=== PATIENT | male | born 1945 | race American Indian/Alaskan Native ===

== ENCOUNTER 2019-02-17 11:06 | Observation (INO) | payer MEDICARE, OTHER ==
--- NOTE | 2019-02-17 11:14 | Event Note ---
ED Screening Note Date of service: 02/17/19 Time: 11:12 ED Screening Note: This is a 73 y.o. M. that presents to the ER from nephrology office Dr. Fernandes with low H/H. This initial assessment/diagnostic orders/clinical plan/treatment(s) is/are subject to change based on patients health status, clinical progression and re- assessment by fellow clinical providers in the ED. Further treatment and workup at subsequent clinical providers discretion. Patient/guardian urged not to elope from the ED as their condition may be serious if not clinically assessed and managed. Initial orders include: Labs
[2019-02-17 12:01] LABS: Basophils % (Auto) 0.5 % (0.0-1.8); Eosinophils # (Auto) 0.1 K/mm3 (0.0-0.4); Hemoglobin 6.4 gm/dl (11.8-15.2); Lymphocytes # (Auto) 1.6 K/mm3 (1.2-5.4); Lymphocytes % (Auto) 21.5 % (13.4-35.0); Mean Corpuscular HGB Conc 33 % (32-34); Mean Corpuscular Volume 84 fl (84-94); Monocytes # (Auto) 0.7 K/mm3 (0.0-0.8); Monocytes % (Auto) 9.9 % (0.0-7.3); Platelet Count 244 K/mm3 (140-440); Red Blood Count 2.28 M/mm3 (3.65-5.03); Red Cell Distribution Width 19.2 % (13.2-15.2)
[2019-02-17 12:12] LABS: Hematocrit 19.2 % (35.5-45.6)
[2019-02-17 12:23] LABS: Albumin 3.1 g/dL (3.9-5); Calcium 8.5 mg/dL (8.4-10.2)
[2019-02-17] MEDS ORDERED: SODIUM CHLORIDE 0.9% 500 ML 500 ML IV ONE ×2 (16:33→21:24)
--- NOTE | 2019-02-17 17:08 | Emergency Department Report ---
ED General Adult HPI - General Chief complaint: Recheck/Abnormal Lab/Rx Stated complaint: LABS DRAWN Time Seen by Provider: 02/17/19 11:12 Source: patient, EMS Mode of arrival: Ambulatory Limitations: No Limitations - History of Present Illness Initial comments: 73-year-old male with a past medical history of end-stage renal disease on dialysis, hypertension, and hepatitis B presents to the hospital from dialysis clinic with abnormal labs. Reports hemoglobin of 5.5 and hematocrit of 18.8 on the blood draw 02/15. Patient states he completed most of his dialysis prior to being transfered to the hospital. Patient reports that last week he has had some increase shortness of breath and generalized fatigue. No pain reported. He reports that he had 1-2 episodes of black stool last week which has since resolved. No complaints of hematochezia, hematemesis, coffee ground emesis. Patient has never required a blood transfusion in the past. 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 - Related Data Allergies Allergy/AdvReac Type Severity Reaction Status Date / Time No Known Allergies Allergy Unverified 02/17/19 11:14 ED Review of Systems ROS: Stated complaint: LABS DRAWN Other details as noted in HPI Comment: All other systems reviewed and negative ED Past Medical Hx - Past Medical History Previous Medical History?: Yes Hx Renal Disease: Yes Additional medical history: Hepatitis B - Social History Smoking Status: Former Smoker Substance Use Type: None ED Physical Exam - General Limitations: No Limitations - Other Other exam information: General: No acute distress Head: Atraumatic Eyes: normal appearance ENT: Moist mucous membranes Neck: Normal appearance, no midline tenderness Chest: Clear to auscultation bilaterally CV: Regular rate and rhythm Abdomen: Soft, normal bowel sounds, nontender, nondistended, no rebound or guarding To: Guaiac positive brown stool without melena or gross blood Back: Normal inspection Extremity: Dialysis access in the left arm with generalized left arm chronic lymphedema/ swelling Neuro: Alert O x 3, no facial asymmetry, speech clear, no gross motor sensory deficit Psych: Appropriate behavior Skin: No rash ED Course Vital Signs 02/17/19 11:13 Temperature 97.7 F Pulse Rate 80 Respiratory 20 Rate Blood Pressure 149/50 O2 Sat by Pulse 100 Oximetry - Consultations Consultation #1: 02/17/19 17:12 case was d/w Dr Fernandes (bilingual spanish inbound sales) who requests admission for blood transfusion and Gi consultation ED Medical Decision Making - Lab Data Result diagrams: 02/17/19 11:27 02/17/19 11:27 Lab Results 02/17/19 02/17/19 02/17/19 Range/Units 11:27 11:27 11:27 WBC 7.5 (4.5-11.0) K/mm3 RBC 2.28 L (3.65-5.03) M/mm3 Hgb 6.4 L (11.8-15.2) gm/dl Hct 19.2 L* (35.5-45.6) % MCV 84 (84-94) fl MCH 28 (28-32) pg MCHC 33 (32-34) % RDW 19.2 H (13.2-15.2) % Plt Count 244 (140-440) K/mm3 Lymph % (Auto) 21.5 (13.4-35.0) % [place] % (Auto) 9.9 H (0.0-7.3) % Eos % (Auto) 1.0 (0.0-4.3) % Baso % (Auto) 0.5 (0.0-1.8) % Lymph # 1.6 (1.2-5.4) K/mm3 [place] # 0.7 (0.0-0.8) K/mm3 Eos # 0.1 (0.0-0.4) K/mm3 Baso # 0.0 (0.0-0.1) K/mm3 Seg Neutrophils % 67.1 (40.0-70.0) % Seg Neutrophils # 5.1 (1.8-7.7) K/mm3 Sodium 137 (137-145) mmol/L Potassium 4.5 (3.6-5.0) mmol/L Chloride 99.9 (98-107) mmol/L Carbon Dioxide 23 (22-30) mmol/L Anion Gap 19 mmol/L BUN 23 H (9-20) mg/dL Creatinine 3.9 H (0.8-1.5) mg/dL Estimated GFR 15 ml/min BUN/Creatinine Ratio 6 % Glucose 195 H (75-100) mg/dL Calcium 8.5 (8.4-10.2) mg/dL Total Bilirubin 0.40 (0.1-1.2) mg/dL AST 21 (5-40) units/L ALT 18 (7-56) units/L Alkaline Phosphatase 93 (35-129) units/L Total Protein 6.5 (6.3-8.2) g/dL Albumin 3.1 L (3.9-5) g/dL Albumin/Globulin Ratio 0.9 % Blood Type O POSITIVE Antibody Screen Negative Crossmatch See Detail - EKG Data -: EKG Interpreted by Me (regular rythm with intermittent escape beats, no pe waves, incomplete LBBB) - Medical Decision Making Patient presents with symptomatic anemia. Case discussed with his bilingual spanish inbound sales who requested admission for 1 unit of blood and GI workup. Hospitalist informed for admission - Differential Diagnosis GI bleed, iron deficiency, anemia and chronic disease Critical Care Time: No Critical care attestation.: If time is entered above; I have spent that time in minutes in the direct care of this critically ill patient, excluding procedure time. ED Disposition Clinical Impression: Symptomatic anemia, ESRD on dialysis Disposition: OP ADMIT IP TO THIS HOSP Is pt being admited?: Yes Condition: Stable Time of Disposition: 17:08 (Dr Salinas hospitalist)
[2019-02-17] MEDS ORDERED: ALBUTEROL 2.5 MG/3 ML NEBU IH PRN (17:41)
[2019-02-17] MEDS ORDERED: ONDANSETRON 4 MG/2 ML INJ IV PRN (17:41)
--- NOTE | 2019-02-17 17:41 | History and Physical Report ---
History of Present Illness Chief complaint: I feel weak History of present illness: 73 YO Male with HBV, HTN, ESRD on HD(M,W,F) presents to ED for evaluation. Pt states that he has experienced generalized weakness over the past 1 month with persistently worsening symptoms over the past 2 weeks. Pt reports decreased e xercise tolerance, dypsnea on exertion, dypsnea at rest. Pt was seen by his crm marketing analyst and found to have HGB of 5.5. Pt also reports two episodes of dark stools last week that resolved. Pt underwent routine dialysis today and was found to have low HGB. Pt instructed to seek further care at [facility]. Pt seen and evaluated in ED and found to have ESRD, symptomatic Anemia. Pt placed in Observation status and admitted to [facility]. Pt denies fever, chills, CP, palpitations, Trauma, NVD, BRBPR, Skin rash, unintentional weight loss, night sweats, or recent ill contacts. No prior admission for review. All medication listed at time of admission was reconciled. Past History Past Medical History: other (see HPI) Past Surgical History: Other (Dialysis access) Social history: , lives with family. denies: smoking, alcohol abuse, prescription drug abuse Family history: diabetes, hypertension Medications and Allergies Allergies Allergy/AdvReac Type Severity Reaction Status Date / Time No Known Allergies Allergy Unverified 02/17/19 11:14 Home Medications Medication Instructions Recorded Confirmed Last Taken Type ALBUTEROL Inhaler (OR & NICU) 1 puff INHALATION PRN PRN 02/17/19 02/17/19 Un known History [ProAir HFA Inhaler] Aspirin EC [Halfprin EC] 81 mg PO QDAY 02/17/19 02/17/19 02/16/19 History AtorvaSTATin [Lipitor] 40 mg PO QHS 02/17/19 02/17/19 02/16/19 History Bisacodyl [Dulcolax] 10 mg PO DAILY PRN 02/17/19 02/17/19 Unknown History Cholecalciferol (Vitamin D3) 1 cap PO DAILY 02/17/19 02/17/19 Unknown History [Vitamin D3 2,000 UNIT CAP] Fenofibrate 160 mg PO DAILY 02/17/19 02/17/19 Unknown History Fluticasone [Flonase] 1 spray NS QDAY 02/17/19 02/17/19 02/16/19 History Furosemide [Lasix TAB] 80 mg PO 4XW 02/17/19 02/17/19 Unknown History ISOSORBIDE MONOnitrate [Imdur ER] 30 mg PO DAILY 02/17/19 02/17/19 02/16/19 History Insulin Aspart (Nf) [NovoLOG 20 units SQ AC 02/17/19 02/17/19 Unknown History Flexpen] Insulin Glargine,Hum.rec.anlog 50 units SQ QAM 02/17/19 02/17/19 02/16/19 History [Lantus Solostar] NIFEdipine [Nifedipine ER] 60 mg PO DAILY 02/17/19 02/17/19 02/16/19 History Sevelamer Carbonate [Renvela] 800 mg PO TIDWM 02/17/19 02/17/19 Unknown History carvediloL [Coreg] 25 mg PO BID 02/17/19 02/17/19 02/16/19 History Review of Systems Constitutional: weakness, no weight loss, no weight gain, no fever, no chills Ears, nose, mouth and throat: no ear pain, no nose pain, no nasal congestion, no nasal discharge Cardiovascular: dyspnea on exertion, decreased exercise tolerance, no chest pain, no orthopnea, no rapid/irregular heart beat, no syncope, no paroxysmal nocturnal dyspnea Respiratory: no cough, no cough with sputum, no excessive sputum, no hemoptysis Gastrointestinal: no nausea, no vomiting, no diarrhea, no constipation, no BRBPR, no melena Genitourinary Male: no hematuria, no flank pain, no discharge, no urinary frequency, no urinary hesitancy Rectal: no pain, no incontinence, no bleeding Musculoskeletal: no neck stiffness, no neck pain, no shooting arm pain, no arm numbness/tingling, no low back pain, no shooting leg pain Integumentary: no pruritis, no redness, no sores, no wounds Neurological: no paralysis, no weakness, no parathesias, no numbness, no tingling, no seizures, no syncope Psychiatric: no anxiety, no memory loss, no change in sleep habits, no insomnia, no hypersomnia, no change in appetite, no change in libido Endocrine: no cold intolerance, no heat intolerance, no polyphagia, no excessive thirst, no polyuria, no nocturia Hematologic/Lymphatic: no easy bruising, no lymphadenopathy Allergic/Immunologic: no urticaria, no allergic rhinitis, no persistent infections, no anaphylaxis Exam - Constitutional Vitals: Temp Pulse Resp BP Pulse Ox 97.7 F 80 20 149/50 100 02/17/19 11:13 02/17/19 11:13 02/17/19 11:13 02/17/19 11:13 02/17/19 11:13 General appearance: Present: mild distress, obese - EENT Eyes: Present: PERRL (conjunctival pallor) ENT: hearing intact, clear oral mucosa - Neck Neck: Present: supple, normal ROM - Respiratory Respiratory effort: normal Respiratory: bilateral: CTA - Cardiovascular Heart Sounds: Present: S1 & S2. Absent: rub, click - Extremities Extremities: pulses symmetrical, No edema Peripheral Pulses: within normal limits - Abdominal General gastrointestinal: Present: soft, non-tender, non-distended, normal bowel sounds Male genitourinary: Present: normal - Integumentary Integumentary: Present: clear, warm, dry - Musculoskeletal Musculoskeletal: generalized weakness - Psychiatric Psychiatric: appropriate mood/affect, intact judgment & insight - Neurologic Neurologic: CNII-XII intact, moves all extremities Results - Labs CBC & Chem 7: 02/17/19 11:27 02/17/19 11:27 Labs: Abnormal lab results 02/17/19 02/17/19 02/17/19 Range/Units 11:27 11:27 11:27 RBC 2.28 L (3.65-5.03) M/mm3 Hgb 6.4 L (11.8-15.2) gm/dl Hct 19.2 L* (35.5-45.6) % RDW 19.2 H (13.2-15.2) % [place] % (Auto) 9.9 H (0.0-7.3) % BUN 23 H (9-20) mg/dL Creatinine 3.9 H (0.8-1.5) mg/dL Glucose 195 H (75-100) mg/dL Albumin 3.1 L (3.9-5) g/dL Crossmatch See Detail Assessment and Plan - Patient Problems (1) ESRD on dialysis Current Visit: Yes Status: Acute (2) Symptomatic anemia Current Visit: Yes Status: Acute Plan to address problem: PRBC transfusion, cbc, repeat cbc in am. (3) HTN (hypertension) Current Visit: Yes Status: Acute Qualifiers: Hypertension type: essential hypertension Qualified Code(s): I10 - Essential (primary) hypertension Plan to address problem: Monitor bp q shift, continue medical management. (4) Advance care planning Current Visit: Yes Status: Acute Plan to address problem: Pt is full code, Prognosis discussed. Pt and acknowledge understanding and agreement with care plan. +30min; (5) DVT prophylaxis Current Visit: Yes Status: Acute Plan to address problem: SCD to BLE while in bed, hold anticoagulation for now pending assessment for bleeding
[2019-02-17] MEDS ORDERED: SODIUM CHLORIDE 0.9% 500 ML 500 ML ONE (18:35)
[2019-02-17] MEDS ORDERED: hydrALAZINE 20 MG/1 ML INJ IV ONE (21:23)
[2019-02-17] MEDS: ACETAMINOPHEN 325 MG TAB PO PRN (22:25)
[2019-02-18] MEDS ORDERED: FUROSEMIDE 20 MG/2 ML INJ IV ONE (01:14)
[2019-02-18] MEDS ORDERED: hydrALAZINE 20 MG/1 ML INJ IV ONE ×3 (01:15→18:00)
[2019-02-18] MEDS: ACETAMINOPHEN 325 MG TAB PO PRN (02:12)
[2019-02-18 09:46] LABS: Hematocrit 27.9 % (35.5-45.6); Hemoglobin 9.3 gm/dl (11.8-15.2); Mean Corpuscular HGB Conc 33 % (32-34); Mean Corpuscular Volume 87 fl (84-94); Platelet Count 219 K/mm3 (140-440); Red Blood Count 3.21 M/mm3 (3.65-5.03); Red Cell Distribution Width 18.1 % (13.2-15.2)
[2019-02-18] MEDS ORDERED: CALCIUM CARBONATE 500 MG TAB CHEW PO PRN (09:55)
[2019-02-18] MEDS ORDERED: ALBUTEROL 8.5 GM INHALATION IH PRN (09:55)
[2019-02-18] MEDS ORDERED: DEXTROSE 50% IN WATER (25GM) 50 ML SYRINGE IV PRN (09:57)
[2019-02-18] MEDS ORDERED: NON-FORMULARY EACH (Nifedipine [Nifedipine Er] 60 MG) PO SCH (10:00)
[2019-02-18] MEDS ORDERED: INSULIN GLARGINE HUM REC ANLOG 50 UNIT SQ SCH (10:00)
[2019-02-18] MEDS ORDERED: FENOFIBRATE 160 MG PO SCH (10:00)
[2019-02-18] MEDS ORDERED: CHOLECALCIFEROL PO SCH (10:00)
[2019-02-18] MEDS ORDERED: NON-FORMULARY EACH (Furosemide [Lasix Tab] 80 MG) PO SCH (10:00)
[2019-02-18 10:07] LABS: Basophils # (Auto) 0.1 K/mm3 (0.0-0.1); Eosinophils # (Auto) 0.1 K/mm3 (0.0-0.4); Eosinophils % (Auto) 0.7 % (0.0-4.3); Monocytes # (Auto) 0.2 K/mm3 (0.0-0.8)
[2019-02-18 10:11] LABS: Calcium 8.1 mg/dL (8.4-10.2)
[2019-02-18 10:51] LABS: Basophils % (Manual) 0 % (0.0-1.8); Eosinophils % (Manual) 0 % (0.0-4.3); Monocytes % (Manual) 0 % (0.0-7.3); Total Cells Counted 100
--- NOTE | 2019-02-18 10:51 | Discharge Summary ---
Providers - Providers Date of Admission: 02/17/19 17:41 Date of discharge: 02/19/19 Attending physician: KAILA HOWE 02/17/19 17:04 Consult to Physician [CONS] Urgent Comment: DR JOSE BARGER W/DR NUR @[id number] Consulting Provider: MODE NUR Physician Instructions: Reason For Exam: esrd anemia Primary care physician: JONNA BAIRD MD Hospitalization Reason for admission: symptomatic anemia Condition: Stable Hospital course: 73 YO Male with HBV, HTN, ESRD on HD(M,W,F) presents to ED for c/o generalized weakness over the past 1 month with persistently worsening symptoms over the past 2 weeks. Pt reported decreased exercise tolerance, dypsnea on exertion, dypsnea at rest. Pt was seen by his movers and found to have HGB of 5.5. Pt underwent routine dialysis today and was found to have low HGB. Pt instructed to seek further care at [facility]. Pt seen and evaluated in ED and found to have ESRD, symptomatic Anemia. Pt placed in Observation status and admitted to [facility]. The patient received PRBCs with significant improvement in H&H. Patient's symptoms resolved. The patient has been instructed to follow-up with primary care physician/GI as an outpatient for possible endoscopy. Patient is felt to receive maximal hospital benefit and will be discharged home. Dedicated discharge time 32 minutes. Disposition: DC-01 TO HOME OR SELFCARE Time spent for discharge: 32 - Discharge Diagnoses (1) ESRD on dialysis Status: Acute (2) HTN (hypertension) Status: Acute Qualifiers: Hypertension type: essential hypertension Qualified Code(s): I10 - Essential (primary) hypertension (3) Symptomatic anemia Status: Acute Core Measure Documentation - Palliative Care Palliative Care/ Comfort Measures: Not Applicable - Core Measures Any of the following diagnoses?: none Exam - Constitutional Vitals: Temp Pulse Resp BP Pulse Ox 99.0 F 68 18 185/64 100 02/18/19 07:29 02/18/19 07:29 02/18/19 07:52 02/18/19 07:29 02/18/19 07:52 General appearance: Present: no acute distress, well-nourished - EENT Eyes: Present: PERRL ENT: hearing intact, clear oral mucosa - Neck Neck: Present: supple, normal ROM - Respiratory Respiratory effort: normal Respiratory: bilateral: CTA - Cardiovascular Heart Sounds: Present: S1 & S2. Absent: rub, click - Extremities Extremities: pulses symmetrical, No edema Peripheral Pulses: within normal limits - Abdominal General gastrointestinal: Present: soft, non-tender, non-distended, normal bowel sounds Male genitourinary: Present: normal - Integumentary Integumentary: Present: clear, warm, dry - Musculoskeletal Musculoskeletal: gait normal, strength equal bilaterally - Psychiatric Psychiatric: appropriate mood/affect, intact judgment & insight - Neurologic Neurologic: CNII-XII intact, moves all extremities Plan Activity: advance as tolerated Weight Bearing Status: Weight Bear as Tolerated Diet: renal Additional Instructions: Pt should follow-up with primary care physician and GI for evaluation and possible endoscopy for anemia. Follow up with: JONNA BAIRD MD [Primary Care Provider] - 7 Days CECY BYNUM MD [Staff Physician] - 7 Days
[2019-02-18 10:52] LABS: Tear Drop Cells Few
[2019-02-18] MEDS: NIFEdipine XL 60 MG TAB PO SCH (10:52)
[2019-02-18 10:53] LABS: Hypochromasia Few; Platelet Estimate Consistent w Auto
[2019-02-18] MEDS: FUROSEMIDE 40 MG TAB PO SCH (10:53)
[2019-02-18] MEDS: carvediloL 25 MG TAB PO SCH ×2 (10:53→21:46)
[2019-02-18] MEDS: INSULIN REGULAR, HUMAN 100 UNITS/1 ML SUB-Q SCH ×4 (11:01→21:50)
[2019-02-18] MEDS: INSULIN GLARGINE 100 UNITS/ML SUB-Q SCH (11:05)
[2019-02-18] MEDS: FLUTICASONE PROPIONATE NASAL SPRAY 16 GM NS SCH (11:05)
[2019-02-18] MEDS ORDERED: INSULIN ASPART 20 UNIT SQ SCH (11:30)
--- NOTE | 2019-02-18 12:24 | Consultation ---
History of Present Illness - History of Present Illness My assessment and plan are as follows End-stage renal disease currently on maintenance hemodialysis Wednesday and Wednesday Severe symptomatic anemia, patient will need at least 2-1/2 hours of dialysis today, He will also need to see his product development engineer If symptoms shalonda her back he will need to come to ER Noted to be noncompliant in outpatient setting Chronic left upper extremity edema Will order for hemodialysis treatment today, patient will likely benefit from inpatient workup Including upper and lower endoscopy given the degree and severity of anemia which is relatively acute his prognosis will depend on his compliance currently felt to be guarded, poor Patient was very resistant to come to Hospital yesterday and I had great difficulty sending him here even though he was severely symptomatic with anemia with significant shortness of breath and fatigue Patient has been adequately counseled and educated regarding all the renal related issues Renal care plan was discussed with patient Prognosis remains guarded at this time We'll continue to follow and make recommendation from renal standpoint if you have any questions please feel free to contact me at [phone] Vic Fernandes M.D. [facility], [address] [id number] History of presenting illness patient is 73-year-old -[place] male who is currently in maintenance hemodialysis on Wednesday and Wednesday schedule at [facility] facility He was advised to come to the hospital, after he was found to have severe anemia and symptomatic with that in terms of fatigue and shortness of breath, Patient was very adamant on not coming to the hospital and with great difficulty he was convinced to come to the hospital: Noted to be noncompliant I had several phone conversations with the dialysis nurse about him coming to the hospital before she decided to come Patient denies having any blood loss, he has seen gastroenterology service in the past but nothing recently he does not recall Review of the records show that on January 13 his hemoglobin was 10.8 and on January 27 it was 10.1 his iron saturations suddenly dropped to 13% and the hemoglobin was noted to be 5.5 by the dialysis facility also his albumin was 3.7 in January which did drop to 3.1 his clearance has been appropriate around 1.25 Past medical history significant for End-stage renal disease Anemia and end-stage renal disease Secondary hyperparathyroidism Chronic swelling of the left upper extremity Current allergies: None Home medication present medication: Reviewed Social history, family history reviewed Review of system positive for dyspnea on exertion and shortness of breath recent decline in hemoglobin Some chronic swelling of the left upper extremity which is mostly due to vascular issues all other review of systems are negative Physical examination: General: No acute distress HEENT: Oral mucosa moist no icterus, no facial swelling Neck: Supple no thyromegaly no lymphadenopathy no JVD Chest: Clear to auscultation no crackles rales or wheezes Heart: Regular rate and rhythm S1-S2 heard no S3-S4 Abdomen: Soft nontender no organomegaly no masses palpable no renal bruit no suprapubic masses no CVA tenderness Dermatology: No skin rashes noted Extremity: Less than 1+ peripheral edema, dry skin no petechial rashes he does have chronic left approximately swelling Musculoskeletal: No joint effusion noted in knee and ankle area Psych: No evidence of agitation and aggression noted Neurological: Alert awake follows commands no tremors no myoclonus Back: No CVA tenderness Past History Past Medical History: other (see HPI) Past Surgical History: Other (Dialysis access) Social history: , lives with family. denies: smoking, alcohol abuse, prescription drug abuse Family history: diabetes, hypertension Medications and Allergies Allergies Allergy/AdvReac Type Severity Reaction Status Date / Time No Known Allergies Allergy Unverified 02/17/19 11:14 Home Medications Medication Instructions Recorded Confirmed Last Taken Type ALBUTEROL Inhaler (OR & NICU) 1 puff INHALATION PRN PRN 02/17/19 02/17/19 Unknown History [ProAir HFA Inhaler] Aspirin EC [Halfprin EC] 81 mg PO QDAY 02/17/19 02/17/19 02/16/19 History AtorvaSTATin [Lipitor] 40 mg PO QHS 02/17/19 02/17/19 02/16/19 History Bisacodyl [Dulcolax tab] 10 mg PO DAILY PRN 02/17/19 02/17/19 Unknown History Calcium Carbonate [Tums 500MG CHEW] 1,000 mg PO PRN PRN 02/17/19 02/17/19 02/16/19 History Cholecalciferol (Vitamin D3) 1 cap PO DAILY 02/17/19 02/17/19 Unknown History [Vitamin D3 2,000 UNIT CAP] Fenofibrate 160 mg PO DAILY 02/17/19 02/17/19 Unknown History Fluticasone [Flonase] 1 spray NS QDAY 02/17/19 02/17/19 02/16/19 History Furosemide [Lasix TAB] 80 mg PO 4XW 02/17/19 02/17/19 Unknown History ISOSORBIDE MONOnitrate [Imdur ER] 30 mg PO DAILY 02/17/19 02/17/19 02/16/19 History Insulin Aspart (Nf) [NovoLOG 20 units SQ AC 02/17/19 02/17/19 Unknown History Flexpen] Insulin Glargine,Hum.rec.anlog 50 units SQ QAM 02/17/19 02/17/19 02/16/19 History [Lantus Solostar] NIFEdipine [Nifedipine ER] 60 mg PO DAILY 02/17/19 02/17/19 02/16/19 History Sevelamer Carbonate [Renvela] 800 mg PO TIDWM 02/17/19 02/17/19 Unknown History carvediloL [Coreg] 25 mg PO BID 02/17/19 02/17/19 02/16/19 History Cholecalciferol Vit D3 [Vitamin D3 2,000 unit PO QDAY tablet 02/18/19 Unknown Rx 1,000 UNIT TAB] Active Meds: Active Medications Acetaminophen (Tylenol) 650 mg PO Q4H PRN PRN Reason: Pain MILD(1-3)/Fever >100.5/CONROY Last Admin: 02/18/19 02:12 Dose: 650 mg Documented by: Albuterol (Proventil) 2.5 mg IH Q4HRT PRN PRN Reason: Shortness Of Breath Last Admin: 02/18/19 01:02 Dose: 2.5 mg Documented by: Atorvastatin Calcium (Lipitor) 40 mg PO QHS TROY Bisacodyl (Dulcolax) 10 mg PO DAILY PRN PRN Reason: Constipation Last Admin: 02/18/19 10:31 Dose: 10 mg Documented by: Calcium Carbonate/Glycine (Tums) 1,000 mg PO PRN PRN PRN Reason: heartburn Last Admin: 02/18/19 10:31 Dose: 1,000 mg Documented by: Carvedilol (Coreg) 25 mg PO BID TROY Last Admin: 02/18/19 10:53 Dose: 25 mg Documented by: Cholecalciferol (Vitamin D3) 2,000 unit PO QDAY [facility] Dextrose (D50w (25gm) Syringe) 50 ml IV Q30MIN PRN; Protocol PRN Reason: Hypoglycemia Fluticasone Propionate (Flonase) 50 mcg NS QDAY [facility] Furosemide (Lasix) 80 mg PO SuTuThSa [facility] Last Admin: 02/18/19 10:53 Dose: 80 mg Documented by: Insulin Glargine (Lantus) 50 units SUB-Q QAM [facility] Insulin Human Lispro (Humalog) 20 unit SUB-Q AC [facility] Insulin Human Regular (Humulin R) 0 units SUB-Q ACHS [facility]; Protocol Last Admin: 02/18/19 11:01 Dose: 4 units Documented by: Isosorbide Mononitrate (Imdur) 30 mg PO DAILY [facility] Last Admin: 02/18/19 10:53 Dose: 30 mg Documented by: Miscellaneous Medication (Fenofibrate [Fenofibrate]) 160 mg PO DAILY [facility] Nifedipine (Procardia Xl) 60 mg PO QDAY [facility] Last Admin: 02/18/19 10:52 Dose: 60 mg Documented by: Ondansetron HCl (Zofran) 4 mg IV Q8H PRN PRN Reason: Nausea And Vomiting Sevelamer Carbonate (Renvela) 800 mg PO TIDWM [facility] Sodium Chloride (Sodium Chloride Flush Syringe 10 Ml) 10 ml IV BID [facility] Last Admin: 02/18/19 09:14 Dose: 10 ml Documented by: Sodium Chloride (Sodium Chloride Flush Syringe 10 Ml) 10 ml IV PRN PRN PRN Reason: LINE FLUSH Exam - Vital Signs Vital signs: Vital Signs Temp Pulse Resp BP Pulse Ox 97.7 F 80 20 149/50 100 02/17/19 11:13 02/17/19 11:13 02/17/19 11:13 02/17/19 11:13 02/17/19 11:13 Results - Lab Results 02/18/19 09:20 02/18/19 20:50 Most recent lab results Calcium 8.1 mg/dL (8.4-10.2) L 02/18/19 09:20
[2019-02-18] MEDS: INSULIN LISPRO 100 UNIT/ML SUB-Q SCH ×2 (12:39→17:56)
[2019-02-18] MEDS: SEVELAMER CARBONATE 800 MG TAB PO SCH ×2 (12:39→17:56)
[2019-02-18] MEDS ORDERED: SODIUM CHLORIDE 0.9% 100 ML IV PRN (14:16)
[2019-02-18 15:30] LABS: Hepatitis B Surface Antigen Non-Reactive (Negative); Hepatitis C Virus Antibody Non-Reactive (NonReactive)
[2019-02-18] MEDS ORDERED: SODIUM CHLORIDE*PRIMING MACHINE ONLY FOR DIALYSIS MC ONE (16:16)
[2019-02-18] MEDS ORDERED: NIFEdipine XL 60 MG TAB PO ONE (18:00)
[2019-02-19] MEDS: INSULIN LISPRO 100 UNIT/ML SUB-Q SCH ×2 (07:57→12:28)
[2019-02-19] MEDS: INSULIN REGULAR, HUMAN 100 UNITS/1 ML SUB-Q SCH ×2 (07:58→12:30)
[2019-02-19] MEDS: SEVELAMER CARBONATE 800 MG TAB PO SCH ×2 (08:05→12:26)
--- NOTE | 2019-02-19 08:21 | Progress Note ---
Assessment and Plan Assessment and plan: ESRD on dialysis Continue hemodialysis per nephrology. Symptomatic anemia PRBC transfusion, cbc, repeat cbc in am. HTN (hypertension) Monitor bp q shift, continue medical management. DVT prophylaxis SCD to BLE while in bed, hold anticoagulation for now pending assessment for bleeding - Patient Problems (1) ESRD on dialysis Current Visit: Yes Status: Acute (2) HTN (hypertension) Current Visit: Yes Status: Acute Qualifiers: Hypertension type: essential hypertension Qualified Code(s): I10 - Essential (primary) hypertension (3) Symptomatic anemia Current Visit: Yes Status: Acute History Interval history: No new issues. Hospitalist Physical - Constitutional Vitals: Temp Pulse Resp BP Pulse Ox 98.7 F 60 18 157/64 97 02/19/19 07:10 02/19/19 07:10 02/19/19 08:03 02/19/19 07:10 02/19/19 08:03 General appearance: Present: no acute distress, well-nourished - EENT Eyes: Present: PERRL, EOM intact ENT: hearing intact, clear oral mucosa, dentition normal - Neck Neck: Present: supple, normal ROM - Respiratory Respiratory effort: normal Respiratory: bilateral: CTA - Cardiovascular Rhythm: regular Heart Sounds: Present: S1 & S2. Absent: gallop, rub - Extremities Extremities: no ischemia, No edema, Full ROM - Abdominal General gastrointestinal: soft, non-tender, non-distended, normal bowel sounds - Integumentary Integumentary: Present: clear, warm, dry - Neurologic Neurologic: CNII-XII intact, moves all extremities Results - Labs CBC & Chem 7: 02/18/19 09:20 02/18/19 20:50 Labs: Laboratory Last Values WBC 10.4 K/mm3 (4.5-11.0) 02/18/19 09:20 RBC 3.21 M/mm3 (3.65-5.03) L 02/18/19 09:20 Hgb 9.3 gm/dl (11.8-15.2) L 02/18/19 09:20 Hct 27.9 % (35.5-45.6) L D 02/18/19 09:20 MCV 87 fl (84-94) 02/18/19 09:20 MCH 29 pg (28-32) 02/18/19 09:20 MCHC 33 % (32-34) 02/18/19 09:20 RDW 18.1 % (13.2-15.2) H 02/18/19 09:20 Plt Count 219 K/mm3 (140-440) 02/18/19 09:20 Lymph % (Auto) 21.5 % (13.4-35.0) 02/17/19 11:27 [place] % (Auto) 2.0 % (0.0-7.3) 02/18/19 09:20 Eos % (Auto) 0.7 % (0.0-4.3) 02/18/19 09:20 Baso % (Auto) 0.5 % (0.0-1.8) 02/17/19 11:27 Lymph # 1.6 K/mm3 (1.2-5.4) 02/17/19 11:27 Routt # 0.2 K/mm3 (0.0-0.8) 02/18/19 09:20 Eos # 0.1 K/mm3 (0.0-0.4) 02/18/19 09:20 Baso # 0.1 K/mm3 (0.0-0.1) 02/18/19 09:20 Add Manual Diff Complete 02/18/19 09:20 Total Counted 100 02/18/19 09:20 Seg Neutrophils % Planer Operator / Grader 02/18/19 09:20 Seg Neuts % (Manual) 95.0 % (40.0-70.0) H 02/18/19 09:20 Band Neutrophils % 0 % 02/18/19 09:20 Lymphocytes % (Manual) 4.0 % (13.4-35.0) L 02/18/19 09:20 Reactive Lymphs % (Man) 1.0 % 02/18/19 09:20 Monocytes % (Manual) 0 % (0.0-7.3) 02/18/19 09:20 Eosinophils % (Manual) 0 % (0.0-4.3) 02/18/19 09:20 Basophils % (Manual) 0 % (0.0-1.8) 02/18/19 09:20 Metamyelocytes % 0 % 02/18/19 09:20 Myelocytes % 0 % 02/18/19 09:20 Promyelocytes % 0 % 02/18/19 09:20 Blast Cells % 0 % 02/18/19 09:20 Nucleated RBC % Not Reportable 02/18/19 09:20 Seg Neutrophils # 10.1 K/mm3 (1.8-7.7) H 02/18/19 09:20 Seg Neutrophils # Man 9.9 K/mm3 (1.8-7.7) H 02/18/19 09:20 Band Neutrophils # 0.0 K/mm3 02/18/19 09:20 Lymphocytes # (Manual) 0.4 K/mm3 (1.2-5.4) L 02/18/19 09:20 Abs React Lymphs (Man) 0.1 K/mm3 02/18/19 09:20 Monocytes # (Manual) 0.0 K/mm3 (0.0-0.8) 02/18/19 09:20 Eosinophils # (Manual) 0.0 K/mm3 (0.0-0.4) 02/18/19 09:20 Basophils # (Manual) 0.0 K/mm3 (0.0-0.1) 02/18/19 09:20 Metamyelocytes # 0.0 K/mm3 02/18/19 09:20 Myelocytes # 0.0 K/mm3 02/18/19 09:20 Promyelocytes # 0.0 K/mm3 02/18/19 09:20 Blast Cells # 0.0 K/mm3 02/18/19 09:20 WBC Morphology Not Reportable 02/18/19 09:20 Hypersegmented Neuts Not Reportable 02/18/19 09:20 Hyposegmented Neuts Not Reportable 02/18/19 09:20 Hypogranular Neuts Not Reportable 02/18/19 09:20 Smudge Cells Not Reportable 02/18/19 09:20 Toxic Granulation Not Reportable 02/18/19 09:20 Toxic Vacuolation Not Reportable 02/18/19 09:20 Dohle Bodies Not Reportable 02/18/19 09:20 Pelger-Huet Anomaly Not Reportable 02/18/19 09:20 Cody Rods Not Reportable 02/18/19 09:20 Platelet Estimate Consistent w auto 02/18/19 09:20 Clumped Platelets Not Reportable 02/18/19 09:20 Plt Clumps, EDTA Not Reportable 02/18/19 09:20 Large Platelets Not Reportable 02/18/19 09:20 Giant Platelets Not Reportable 02/18/19 09:20 Platelet Satelliting Not Reportable 02/18/19 09:20 Plt Morphology Comment Not Reportable 02/18/19 09:20 RBC Morphology Not Reportable 02/18/19 09:20 Dimorphic RBCs Not Reportable 02/18/19 09:20 Polychromasia Not Reportable 02/18/19 09:20 Hypochromasia Few 02/18/19 09:20 Poikilocytosis Not Reportable 02/18/19 09:20 Anisocytosis Not Reportable 02/18/19 09:20 Microcytosis Not Reportable 02/18/19 09:20 Macrocytosis Not Reportable 02/18/19 09:20 Spherocytes Not Reportable 02/18/19 09:20 Pappenheimer Bodies Not Reportable 02/18/19 09:20 Sickle Cells Not Reportable 02/18/19 09:20 Target Cells Not Reportable 02/18/19 09:20 Tear Drop Cells Few 02/18/19 09:20 Ovalocytes Not Reportable 02/18/19 09:20 Helmet Cells Not Reportable 02/18/19 09:20 [place] Bodies Not Reportable 02/18/19 09:20 [place] Rings Not Reportable 02/18/19 09:20 Ammy Cells Not Reportable 02/18/19 09:20 Bite Cells Not Reportable 02/18/19 09:20 Crenated Cell Not Reportable 02/18/19 09:20 Elliptocytes Few 02/18/19 09:20 Acanthocytes (Spur) Not Reportable 02/18/19 09:20 Rouleaux Not Reportable 02/18/19 09:20 Hemoglobin C Crystals Not Reportable 02/18/19 09:20 Schistocytes Not Reportable 02/18/19 09:20 Malaria parasites Not Reportable 02/18/19 09:20 Blayne Bodies Not Reportable 02/18/19 09:20 Hem Pathologist Commnt No 02/18/19 09:20 Sodium 139 mmol/L (137-145) 02/18/19 09:20 Potassium 4.1 mmol/L (3.6-5.0) 02/18/19 09:20 Chloride 99.5 mmol/L (98-107) 02/18/19 09:20 Carbon Dioxide 20 mmol/L (22-30) L 02/18/19 09:20 Anion Gap 24 mmol/L 02/18/19 09:20 BUN 32 mg/dL (9-20) H 02/18/19 09:20 Creatinine 5.2 mg/dL (0.8-1.5) H 02/18/19 09:20 Estimated GFR 13 ml/min 02/18/19 09:20 BUN/Creatinine Ratio 6 % 02/18/19 09:20 Glucose 115 mg/dL (75-100) H 02/18/19 20:50 POC Glucose 77 (70-105) 02/19/19 07:18 Calcium 8.1 mg/dL (8.4-10.2) L 02/18/19 09:20 Total Bilirubin 0.40 mg/dL (0.1-1.2) 02/17/19 11:27 AST 21 units/L (5-40) 02/17/19 11:27 ALT 18 units/L (7-56) 02/17/19 11:27 Alkaline Phosphatase 93 units/L (35-129) 02/17/19 11:27 Total Protein 6.5 g/dL (6.3-8.2) 02/17/19 11:27 Albumin 3.1 g/dL (3.9-5) L 02/17/19 11:27 Albumin/Globulin Ratio 0.9 % 02/17/19 11:27 Hepatitis A IgM Ab Non-reactive (NonReactive) 02/18/19 14:45 Hep Bs Antigen Non-reactive (Negative) 02/18/19 14:45 Hep B Core IgM Ab Non-reactive (NonReactive) 02/18/19 14:45 Hepatitis C Antibody Non-reactive (NonReactive) 02/18/19 14:45 Blood Type O POSITIVE 02/17/19 11:27 Antibody Screen Negative 02/17/19 11:27 Crossmatch See Detail 02/17/19 11:27 Active Medications - Current Medications Current Medications: Generic Name Dose Route Start Last Admin Trade Name Freq PRN Reason Stop Dose Admin Acetaminophen 650 mg 02/17/19 17:41 02/18/19 02:12 Tylenol PO 650 mg Q4H PRN Administration Pain MILD(1-3)/Fever >100.5/CONROY Albuterol 2.5 mg 02/17/19 17:41 02/18/19 01:02 Proventil IH 2.5 mg Q4HRT PRN Administration Shortness Of Breath Atorvastatin Calcium 40 mg 02/18/19 22:00 02/18/19 21:46 Lipitor PO 40 mg QHS TROY Administration Bisacodyl 10 mg 02/18/19 09:55 02/18/19 10:31 Dulcolax PO 10 mg DAILY PRN Administration Constipation Calcium Carbonate/Glycine 1,000 mg 02/18/19 09:55 02/18/19 10:31 Tums PO 1,000 mg PRN PRN Administration heartburn Carvedilol 25 mg 02/18/19 10:40 02/18/19 21:46 Coreg PO 25 mg BID TROY Administration Cholecalciferol 2,000 unit 02/19/19 10:00 Vitamin D3 PO QDAY [facility] Dextrose 50 ml 02/18/19 09:57 02/18/19 20:36 D50w (25gm) Syringe IV 50 ml Q30MIN PRN Administration Hypoglycemia Protocol Fenofibrate 145 mg 02/19/19 10:00 Tricor PO DAILY [facility] Fluticasone Propionate 50 mcg 02/18/19 10:00 02/18/19 11:05 Flonase NS 50 mcg QDAY TROY Administration Furosemide 80 mg 02/18/19 10:45 02/18/19 10:53 Lasix PO 80 mg SuTuThSa [facility] Administration Sodium Chloride 100 mls @ 999 mls/hr 02/18/19 14:16 Nacl 0.9% IV PATRICK PRN Hypotension during HD Insulin Glargine 50 units 02/18/19 10:40 02/18/19 11:05 Lantus SUB-Q 50 units QAM TROY Administration Insulin Human Lispro 20 unit 02/18/19 11:30 02/19/19 07:57 Humalog SUB-Q Not Given AC [facility] Insulin Human Regular 0 units 02/18/19 10:40 02/19/19 07:58 Humulin R SUB-Q Not Given ACHS [facility] Protocol Isosorbide Mononitrate 30 mg 02/18/19 10:40 02/18/19 10:53 Imdur PO 30 mg DAILY TROY Administration Nifedipine 60 mg 02/18/19 10:40 02/18/19 10:52 Procardia Xl PO 60 mg QDAY TROY Administration Ondansetron HCl 4 mg 02/17/19 17:41 Zofran IV Q8H PRN Nausea And Vomiting Sevelamer Carbonate 800 mg 02/18/19 12:00 02/18/19 17:56 Renvela PO 800 mg TIDWM TROY Administration Sodium Chloride 10 ml 02/17/19 22:00 02/18/19 21:47 Sodium Chloride Flush Syringe 10 Ml IV 10 ml BID TROY Administration Sodium Chloride 10 ml 02/17/19 17:41 Sodium Chloride Flush Syringe 10 Ml IV PRN PRN LINE FLUSH Nutrition/Malnutrition Assess - Dietary Evaluation Nutrition/Malnutrition Findings: Nutrition Notes Start: 02/18/19 09: 54 Freq: Status: Active Protocol: Document 02/18/19 12:18 (Rec: 02/18/19 12:19 [id number]) Nutrition Notes 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 There is no DM dx present in pt chart. Additionally, there is no A1C. Nutrition Intervention Revisit per MD consult or patient Sign Off request:
[2019-02-19] MEDS: NIFEdipine XL 60 MG TAB PO SCH (09:14)
[2019-02-19] MEDS: FLUTICASONE PROPIONATE NASAL SPRAY 16 GM NS SCH (09:14)
[2019-02-19] MEDS: carvediloL 25 MG TAB PO SCH (09:15)
[2019-02-19 09:16] VITALS: BP 153/57
[2019-02-19] MEDS: INSULIN GLARGINE 100 UNITS/ML SUB-Q SCH (09:29)
[2019-02-19] MEDS ORDERED: FENOFIBRATE 145 MG TAB PO SCH (10:00)
[2019-02-19] MEDS ORDERED: CHOLECALCIFEROL (VIT D3) 1000 UNIT TAB PO SCH (10:00)
[2019-02-19] MEDS: FUROSEMIDE 40 MG TAB PO SCH (10:16)
--- NOTE | 2019-02-19 11:16 | Progress Note ---
Subjective Interval history: Patient was seen today for follow-up on multiple renal related issues Events of this hospitalization were noted Interdisciplinary notes were also reviewed Vitals intake output medications were reviewed Past medical history: Reviewed Family, social history: Reviewed Allergies: Reviewed Physical examination General: No acute distress Vitals: Reviewed HEENT: Oral mucosa moist no icterus Neck: Supple no thyromegaly nodular mass or JVD Chest: Clear to auscultation anteriorly Heart: Regular rate and rhythm S1-S2 heard no S3-S4 Abdomen: Soft nontender no suprapubic masses no organomegaly Extremity: Dry skin less than 1+ edema Psych: No evidence of any agitation and aggression noted Derm: No petechial rash Assessment and plan: end-stage renal disease status post hemodialysis yesterday normal dialysis days are Wednesday and Wednesday he is at [facility] Acute severe drop in hemoglobin with drop and iron saturation and albumin Patient should be considered for inpatient GI evaluation as this is a signifi cant drop by nearly 5-1/2 g within the matter of 2 weeks Status post packed red blood cell transfusion Has had partial dialysis treatment yesterday We'll give iron infusion today/ also erythropoietin Patient at times has been very difficult to dialysis clinic to treat, he was giving very hard time to the nurse yesterday after he was told to come to the hospital and with great difficulty, we had him come here This issue a specifically discussed with him as well as his and his presence with his consent All renal related issues were discussed with the patient, patient does exhibit good understanding, lab results were also discussed with patient in simple Croatian Prognosis: Guarded We'll continue to follow and make recommendation from renal standpoint Objective - Vital Signs Vital signs: Vital Signs - 12hr 02/19/19 02/19/19 02/19/19 02:23 07:10 09:14 Temperature 98.5 F 98.7 F Pulse Rate 62 60 61 Respiratory 18 18 Rate Blood Pressure 164/61 157/64 153/57 O2 Sat by Pulse 100 97 100 Oximetry 02/19/19 02/19/19 02/19/19 09:15 10:00 10:16 Temperature Pulse Rate 61 Respiratory 18 Rate Blood Pressure 153/57 O2 Sat by Pulse 97 100 Oximetry - Lab 02/18/19 09:20 02/18/19 20:50 Most recent lab results Calcium 8.1 mg/dL (8.4-10.2) L 02/18/19 09:20 Medications & Allergies - Medications Allergies/Adverse Reactions: Allergies No Known Allergies Allergy (Unverified 02/17/19 11:14) Home Medications: Home Medications Medication Instructions Recorded Confirmed Last Taken Type ALBUTEROL Inhaler (OR & NICU) 1 puff INHALATION PRN PRN 02/17/19 02/17/19 Unknown History [ProAir HFA Inhaler] Aspirin EC [Halfprin EC] 81 mg PO QDAY 02/17/19 02/17/19 02/16/19 History AtorvaSTATin [Lipitor] 40 mg PO QHS 02/17/19 02/17/19 02/16/19 History Bisacodyl [Dulcolax tab] 10 mg PO DAILY PRN 02/17/19 02/17/19 Unknown History Calcium Carbonate [Tums 500MG CHEW] 1,000 mg PO PRN PRN 02/17/19 02/17/19 1 04/19/18 History Cholecalciferol (Vitamin D3) 1 cap PO DAILY 02/17/19 02/17/19 Unknown History [Vitamin D3 2,000 UNIT CAP] Fenofibrate 160 mg PO DAILY 02/17/19 02/17/19 Unknown History Fluticasone [Flonase] 1 spray NS QDAY 02/17/19 02/17/19 02/16/19 History Furosemide [Lasix TAB] 80 mg PO 4XW 02/17/19 02/17/19 Unknown History ISOSORBIDE MONOnitrate [Imdur ER] 30 mg PO DAILY 02/17/19 02/17/19 02/16/19 History Insulin Aspart (Nf) [NovoLOG 20 units SQ AC 02/17/19 02/17/19 Unknown History Flexpen] Insulin Glargine,Hum.rec.anlog 50 units SQ QAM 02/17/19 02/17/19 02/16/19 Hi story [Lantus Solostar] NIFEdipine [Nifedipine ER] 60 mg PO DAILY 02/17/19 02/17/19 02/16/19 History Sevelamer Carbonate [Renvela] 800 mg PO TIDWM 02/17/19 02/17/19 Unknown History carvediloL [Coreg] 25 mg PO BID 02/17/19 02/17/19 02/16/19 History Cholecalciferol Vit D3 [Vitamin D3 2,000 unit PO QDAY tablet 02/18/19 Unknown Rx 1,000 UNIT TAB] Active Medications: Generic Name Dose Route Start Last Admin Trade Name Betzaida PRN Reason Stop Dose Admin Acetaminophen 650 mg 02/17/19 17:41 02/18/19 02:12 Tylenol PO 650 mg Q4H PRN Administration Pain MILD(1-3)/Fever >100.5/CONROY Albuterol 2.5 mg 02/17/19 17:41 02/18/19 01:02 Proventil IH 2.5 mg Q4HRT PRN Administration Shortness Of Breath Atorvastatin Calcium 40 mg 02/18/19 22:00 02/18/19 21:46 Lipitor PO 40 mg QHS TROY Administration Bisacodyl 10 mg 02/18/19 09:55 02/18/19 10:31 Dulcolax PO 10 mg DAILY PRN Administration Constipation Calcium Carbonate/Glycine 1,000 mg 02/18/19 09:55 02/18/19 10:31 Tums PO 1,000 mg PRN PRN Administration heartburn Carvedilol 25 mg 02/18/19 10:40 02/19/19 09:15 Coreg PO 25 mg BID TROY Administration Cholecalciferol 2,000 unit 02/19/19 10:00 02/19/19 09:14 Vitamin D3 PO 2,000 unit QDAY TROY Administration Dextrose 50 ml 02/18/19 09:57 02/18/19 20:36 D50w (25gm) Syringe IV 50 ml Q30MIN PRN Administration Hypoglycemia Protocol Fenofibrate 145 mg 02/19/19 10:00 02/19/19 09:13 Tricor PO 145 mg DAILY TROY Administration Fluticasone Propionate 50 mcg 02/18/19 10:00 02/19/19 09:14 Flonase NS 50 mcg QDAY TROY Administration Furosemide 80 mg 02/18/19 10:45 02/19/19 10:16 Lasix PO 80 mg SuTuThSa TROY Administration Sodium Chloride 100 mls @ 999 mls/hr 02/18/19 14:16 Nacl 0.9% IV PATRICK PRN Hypotension during HD Insulin Glargine 50 units 02/18/19 10:40 02/19/19 09:29 Lantus SUB-Q 50 units QAM TROY Administration Insulin Human Lispro 20 unit 02/18/19 11:30 02/19/19 07:57 Humalog SUB-Q Not Given AC TROY Insulin Human Regular 0 units 02/18/19 10:40 02/19/19 07:58 Humulin R SUB-Q Not Given ACHS [facility] Protocol Isosorbide Mononitrate 30 mg 02/18/19 10:40 02/19/19 09:15 Imdur PO 30 mg DAILY TROY Administration Nifedipine 60 mg 02/18/19 10:40 02/19/19 09:14 Procardia Xl PO 60 mg QDAY TROY Administration Ondansetron HCl 4 mg 02/17/19 17:41 Zofran IV Q8H PRN Nausea And Vomiting Sevelamer Carbonate 800 mg 02/18/19 12:00 02/19/19 08:05 Renvela PO 800 mg TIDWM TROY Administration Sodium Chloride 10 ml 02/17/19 22:00 02/19/19 09:16 Sodium Chloride Flush Syringe 10 Ml IV 10 ml BID TROY Administration Sodium Chloride 10 ml 02/17/19 17:41 Sodium Chloride Flush Syringe 10 Ml IV PRN PRN LINE FLUSH
== END 2019-02-19 13:50 | disposition home or self-care (01) ==
LOC: ED 11:06 → 2B-ACE 17:41
PROVIDERS: ADMIT Internal Medicine; ATTEND Hospitalist
DX: D64.9 Anemia, unspecified (principal); I12.0 Hypertensive chronic kidney disease with stage 5 chronic kidney disease or end stage renal disease; N18.6 End stage renal disease; Z99.2 Dependence on renal dialysis; Z79.82 Long term (current) use of aspirin; Z79.4 Long term (current) use of insulin; Z86.19 Personal history of other infectious and parasitic diseases; Z87.891 Personal history of nicotine dependence
CPT/HCPCS: 36415; 36430; 80048; 80053; 80074; 82271; 82947; 82962; 85007; 85025; 86850; 86900; 86901; 86920; 94640; 94760; 96372; 96374; 96375; 96376; 99284; A9270; G0378; J0360; J1940; J7030; J7040; P9016; G0257; J1815